=== PATIENT | male | born 1960 | race Caucasian/White ===

== ENCOUNTER 2022-07-23 19:51 | Inpatient (IN) | payer BC ==
[~2022-07-23] VITALS: Ht 182.9 cm; Wt 108.9 kg
[2022-07-23] MEDS ORDERED: IV NS 0.9% 1,000 ML BAG IV ONE (20:00)
--- NOTE | 2022-07-23 20:30 | NUR ---
BLOOD COLLECTED AND SENT TO LAB
--- NOTE | 2022-07-23 20:35 | NUR ---
PT TAKEN TO CT VIA SILVA
--- NOTE | 2022-07-23 20:45 | NUR ---
PT RETURNED TO ER BED [address]
[2022-07-23 20:50] LABS: BASOPHILS % (AUTO) 0.3 % (0.0-2.0); EOSINOPHILS % (AUTO) 0.9 % (0.0-6.0); HEMATOCRIT 47 % (39-51); HEMOGLOBIN 16.1 g/dL (13.5-17.5); LYMPHOCYTES # (AUTO) 2.2 K/uL (0.8-4.8); LYMPHOCYTES % (AUTO) 20.8 % (20.0-44.0); MEAN CORPUSCULAR HGB CONC 35 g/dl (31.0-36.0); MEAN CORPUSCULAR VOLUME 85 fL (80-96); MONOCYTES # (AUTO) 0.8 K/uL (0.1-1.30); MONOCYTES % (AUTO) 7.8 % (2.0-12.0); NEUTROPHILS # (AUTO) 7.4 K/uL (1.8-8.9); NEUTROPHILS % (AUTO) 70.2 % (43.0-81.0); PLATELET COUNT (AUTO) 514 K/uL (150-450); WHITE BLOOD COUNT (AUTO) 10.5 K/uL (4.3-11.0)
[2022-07-23 21:01] LABS: CALCIUM, SERUM 8.9 mg/dL (8.5-10.1); CARBON DIOXIDE 21 mmol/L (21-32); CHLORIDE 101 mmol/L (98-107); CREATININE 1.3 mg/dL (0.6-1.3); GLUCOSE 136 mg/dL (74-106); POTASSIUM 3.5 mmol/L (3.5-5.1); SODIUM SERUM 134 mmol/L (136-145); UREA NITROGEN, BLOOD 17 mg/dL (7-18)
[2022-07-23 21:07] LABS: ALANINE AMINOTRANSFERASE 36 U/L (12-78); ALBUMIN 3.5 g/dL (3.4-5.0); ALCOHOL, BLOOD < 3 mg/dL (0-0); ALKALINE PHOSPHATASE 54 U/L (46-116); ASPARTATE AMINOTRANSFERASE 28 U/L (15-37); BILIRUBIN,DIRECT 0.1 mg/dL (0.0-0.2); BILIRUBIN,TOTAL 0.6 mg/dL (0.2-1.0); TOTAL PROTEIN, SERUM 7.6 g/dL (6.4-8.2)
--- NOTE | 2022-07-23 21:22 | NUR ---
SPOKE TO SUSAN AT PT'S FACILITY. SHE GAVE NUMBERS FOR UPDATES ON PT [phone] AND [phone]
--- NOTE | 2022-07-23 21:22 | NUR ---
covid swab sent
[2022-07-23] MEDS ORDERED: ACETAMINOPHEN 325 MG TABLET ONE (21:24)
[2022-07-23] MEDS ORDERED: IV NS 0.9% 1,000 ML IV ONE (21:30)
[2022-07-23] MEDS ORDERED: ACETAMINOPHEN 325 MG TABLET PO ONE (21:30)
--- NOTE | 2022-07-23 21:39 | NUR ---
MOVE SHEET SUBMITTED
--- NOTE | 2022-07-23 22:05 | NUR ---
WILLIAM GOODRICH DNP AT PT'S BEDSIDE FOR ALICEAL
[2022-07-23] MEDS ORDERED: MORPHINE SULFATE INJ 2 MG/ML DISP.SYRIN IV PRN (22:30)
[2022-07-23] MEDS ORDERED: TEMAZEPAM 15 MG CAPSULE PO PRN (22:30)
[2022-07-23] MEDS ORDERED: ONDANSETRON HCL/PF 4 MG/2 ML VIAL IVP PRN (22:30)
[2022-07-23] MEDS ORDERED: MAG HYDROX/AL HYDROX/SIMETH 30 ML UDC PO PRN (22:30)
[2022-07-23] MEDS ORDERED: Z GUARD REMEDY 4 OZ OINT TP PRN (22:30)
[2022-07-23] MEDS ORDERED: MAGNESIUM HYDROXIDE 30 ML UDC PO PRN (22:30)
[2022-07-23] MEDS ORDERED: ACETAMINOPHEN 325 MG TABLET PO PRN (22:30)
[2022-07-23] MEDS ORDERED: LORAZEPAM INJ 2 MG/ML VIAL IV PRN (22:30)
--- NOTE | 2022-07-23 22:49 | NUR ---
ROOM 117-2
--- NOTE | 2022-07-23 23:10 | NUR ---
MRSA SWAB COLLECTED AND SENT TO LAB
--- NOTE | 2022-07-23 23:10 | NUR ---
REPORT GIVEN TO RADHA MORENO
--- NOTE | 2022-07-23 23:20 | NUR ---
PT TRANSFERRING TO [facility] VIA ACLS PROTOCOL. VSS. ALL BELONGINGS WITH PT.
[2022-07-23] MEDS ORDERED: LEVETIRACETAM (500MG) 500 MG/5 ML VIAL IV ONE (23:50)
[2022-07-23] MEDS: LEVETIRACETAM (500MG) 1,000 MG in IV NS 0.9% 100 ML IV SCH (23:54)
[2022-07-23] MEDS: IV NS 0.9% 1,000 ML IV PRN (23:54)
[2022-07-24] MEDS: HYDROCODONE/APAP 5/325MG TABLET PO PRN (00:02)
[2022-07-24 01:00] VITALS: BP 160/65
[2022-07-24] MEDS ORDERED: LOFE0.18 PO (01:00)
[2022-07-24] MEDS ORDERED: HYDR50CA PO (01:00)
[2022-07-24] MEDS ORDERED: QUET100T PO (01:00)
[2022-07-24] MEDS ORDERED: CLON0.1T PO (01:00)
[2022-07-24] MEDS ORDERED: METH-649 PO (01:00)
--- NOTE | 2022-07-24 01:10 | NUR ---
RN NOTE PT A/O X3-4 ABLE TO MAKE NEEDS KNOWN. ON 2L NASAL CANULA FOR COMFORT. PT NOTED WELL IV ACCES ON THE R UPPPER ARM #20G RUNNING NS @75ML/HR AND KEPPRA IV PIGGYBACK TOLERATING WELL. PT VERY UNSTEADY GAIT AT THIS TIME. PT WAS GIVEN PRN NORCO 5- 325MG PT REPORTING GENERALIZED BODY PAIN 8/10 PER PT THE DOES NOT WISH TO TAKE ANY STRONG NARCOTICS " ITS NOT GOOD FOR ME I AM TRYING TO STOP TAKING DRUGS" SAFETY MEASURES FOLLOWED. HOB ELEVATED FOR ASPIRATION PRECAUTIONS, BED LOCKED IN POSITION. SEIZURE PRECAUTIONS MAINTAINED. ALL NEEDS MET AT THIS TIME.
--- NOTE | 2022-07-24 03:12 | NUR ---
RN NOTE PRN ATIVAN GIVEN FOR WITHDRAWAL SYMPTOMS TOLERATED WELL. OK TO GIVE PER BEREAVEMENT PROGRAM COORDINATOR JOLEEN.
[2022-07-24 05:21] VITALS: BP 149/74
[2022-07-24 06:41] LABS: BASOPHILS % (AUTO) 0.1 % (0.0-2.0); EOSINOPHILS % (AUTO) 0.2 % (0.0-6.0); HEMATOCRIT 44 % (39-51); HEMOGLOBIN 15.2 g/dL (13.5-17.5); LYMPHOCYTES # (AUTO) 1.9 K/uL (0.8-4.8); LYMPHOCYTES % (AUTO) 15.6 % (20.0-44.0); MEAN CORPUSCULAR HGB CONC 35 g/dl (31.0-36.0); MEAN CORPUSCULAR VOLUME 85 fL (80-96); MONOCYTES # (AUTO) 0.9 K/uL (0.1-1.30); MONOCYTES % (AUTO) 7.6 % (2.0-12.0); NEUTROPHILS # (AUTO) 9.1 K/uL (1.8-8.9); NEUTROPHILS % (AUTO) 76.5 % (43.0-81.0); PLATELET COUNT (AUTO) 399 K/uL (150-450); RED BLOOD CELL COUNT(AUTO) 5.14 MIL/uL (4.5-6.0); WHITE BLOOD COUNT (AUTO) 11.9 K/uL (4.3-11.0)
--- NOTE | 2022-07-24 06:52 | NUR ---
RN NOTE PT A/O X3-4 ABLE TO MAKE NEEDS KNOWN. ON 2L NASAL CANULA FOR COMFORT. PT NOTED WELL IV ACCES ON THE R UPPER ARM #20G RUNNING NS @75ML/HR PT VERY UNSTEADY GAIT AT THIS TIME. SAFETY MEASURES FOLLOWED. HOB ELEVATED FOR ASPIRATION PRECAUTIONS, BED LOCKED IN POSITION. SEIZURE PRECAUTIONS MAINTAINED. ALL NEEDS MET AT THIS TIME.WILL ENDORSE CARE TODAY SHIFT NURSE.
[2022-07-24 07:22] LABS: CALCIUM, SERUM 8.4 mg/dL (8.5-10.1); CREATININE 0.9 mg/dL (0.6-1.3); MAGNESIUM 2.2 mg/dL (1.8-2.4); PHOSPHORUS 4.1 mg/dL (2.5-4.9); POTASSIUM 3.9 mmol/L (3.5-5.1)
[2022-07-24 08:00] VITALS: BP 148/86
[2022-07-24] MEDS: PANTOPRAZOLE 40 MG TABLET.DR PO SCH (08:09)
--- NOTE | 2022-07-24 09:31 | NUR ---
WOUND CARE CONSULT: LIMITED ASSESSMENT DUE TO PT VERY WEAK AND REFUSING TO TURN FOR FULL ASSESSMENT. PT STATES HAS SORENESS ALL OVER HIS BODY AND STATES IS HAVING TROUBLE SWALLOWING. RN AND TOURIST GUIDE NOTIFIED. DISCUSSED SKIN PROTECTION WITH NURSING STAFF. MD IN AGREEMENT WITH PLAN OF CARE.
[2022-07-24] MEDS: LEVETIRACETAM (500MG) 1,000 MG in IV NS 0.9% 100 ML IV SCH ×2 (09:52→21:28)
[2022-07-24 12:00] VITALS: BP 133/75
--- NOTE | 2022-07-24 13:36 | NUR ---
SW Consult: SW consult requested for patient for substance abuse. Patient brought to the hospital due to seizures. Patient presents alert and oriented x3 (self,place,situation). Patient reported that when he was brought to the hospital he was unsure what had happened and was not able to recall the incident. Patient appeared confused and disorganized, but was able to recall some events. Patient reported that he is originally from [place]. He states that he is . He reported his 's name is Steph but unable to remember the phone number and has children- 5 boys. 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 Patient stated that he is currently residing at a [facility] located at [id number] [place] [address]; ([phone]). Patient denies suicidal or homicidal ideation. Patient denies visual/auditory hallucinations. Patient denied any mental illness. Patient stated he is feeling anxious because he wants to be discharged back to his Sober Living. Patient stated that he is currently feeling weak and has difficulty sleeping. SW conducted substance abuse intervention with pt. He stated that he came to [place] in July for Detox. He reported that for the past two years he has been abusing drugs- specifically using Xanax and Heroin. SW offered pt resources and pt was accepting of shelters and substance abuse referrals. DC PLAN: Patient stated that he is currently residing at a [facility] located at [id number] [place] [address]; ([phone]). Patient wants to return back to his Sober Living Home. Substance Abuse resources provided included: [facility] Substance Abuse Self-Helpline ([facility]) ; [facility] [id number] [facility]. [place] [id number] ; [facility] [address] [facility] [address] ; [facility] [address] [facility] [address] ; [facility] [address] [address] ; [facility] [address] [facility] [address] ; [facility] [address] [facility] [id number] ; [facility] Substance Abuse Helpline([facility] ; [facility] ; [facility] [place]; [facility] [place]; [facility] Son[facility] Romano; [facility]; [facility]; [facility]; [facility], [facility]. Palomo Franco; Alcoholics Anonymous [facility]; [place] ; Marijuana Anonymous [facility]; Narcotics Anonymous www.na.org;
[2022-07-24 16:00] VITALS: BP 147/89
--- NOTE | 2022-07-24 16:00 | NUR ---
RN NOTES: SEEN BY DR VIRGEN WITH ORDER OF ROBAXIN PRN FOR PAIN
[2022-07-24] MEDS: METHOCARBAMOL (750MG) 750 MG TABLET PO PRN ×2 (16:01→21:28)
[2022-07-24] MEDS: IV NS 0.9% 1,000 ML IV PRN (18:20)
--- NOTE | 2022-07-24 19:20 | NUR ---
GROUND SYSTEMS ENGINEER CLOSING NOTES: PT A/O X3-4 ABLE TO MAKE NEEDS KNOWN. ON 2L NASAL CANULA FOR COMFORT. PT NOTED WELL IV ACCES ON THE L UPPER ARM MIDLINE #18G RUNNING NS @75ML/HR PT VERY UNSTEADY GAIT AT THIS TIME. SAFETY MEASURES FOLLOWED. HOB ELEVATED FOR ASPIRATION PRECAUTIONS, BED LOCKED IN POSITION. SEIZURE PRECAUTIONS MAINTAINED. ALL NEEDS MET AT THIS TIME.WILL ENDORSE CARE TO EVENT SERVICES MANAGER NURSE.
[2022-07-24 20:00] VITALS: BP 153/87
[2022-07-25 00:24] VITALS: BP 145/85
[2022-07-25] MEDS: HYDROCODONE/APAP 5/325MG TABLET PO PRN (00:40)
[2022-07-25 05:35] VITALS: BP 132/71
[2022-07-25 06:43] LABS: BASOPHILS % (AUTO) 0.2 % (0.0-2.0); EOSINOPHILS % (AUTO) 0.4 % (0.0-6.0); HEMATOCRIT 46 % (39-51); HEMOGLOBIN 15.6 g/dL (13.5-17.5); LYMPHOCYTES # (AUTO) 1.7 K/uL (0.8-4.8); LYMPHOCYTES % (AUTO) 16.4 % (20.0-44.0); MEAN CORPUSCULAR HGB CONC 34 g/dl (31.0-36.0); MEAN CORPUSCULAR VOLUME 87 fL (80-96); MONOCYTES # (AUTO) 0.7 K/uL (0.1-1.30); MONOCYTES % (AUTO) 7.2 % (2.0-12.0); NEUTROPHILS # (AUTO) 7.9 K/uL (1.8-8.9); NEUTROPHILS % (AUTO) 75.8 % (43.0-81.0); PLATELET COUNT (AUTO) 381 K/uL (150-450); RED BLOOD CELL COUNT(AUTO) 5.33 MIL/uL (4.5-6.0); WHITE BLOOD COUNT (AUTO) 10.4 K/uL (4.3-11.0)
[2022-07-25] MEDS: PANTOPRAZOLE 40 MG TABLET.DR PO SCH (06:45)
[2022-07-25 07:24] LABS: CALCIUM, SERUM 8.4 mg/dL (8.5-10.1); CREATININE 0.9 mg/dL (0.6-1.3); MAGNESIUM 2.4 mg/dL (1.8-2.4); PHOSPHORUS 2.9 mg/dL (2.5-4.9); POTASSIUM 3.7 mmol/L (3.5-5.1)
--- NOTE | 2022-07-25 07:37 | NUR ---
RN notes Received patient in bed without any active complaint. Telemetry showed SR 63/min. No SOB noted. Left upperarm midline is dry and intact with NS running at 75mL/hr. Suction bottle is present. Call deluna is placed within reach. Bed is locked and placed in the lowest position. All safety measures have been implemented. Will continue monitoring and care.
[2022-07-25 08:00] VITALS: BP 154/99
[2022-07-25] MEDS ORDERED: LEVETIRACETAM SOL (5 ML) 100 MG/ML UDC PO SCH (09:00)
[2022-07-25] MEDS: IV NS 0.9% 1,000 ML IV PRN (09:09)
[2022-07-25 12:00] VITALS: BP 144/76
--- NOTE | 2022-07-25 13:00 | NUR ---
RN notes Patient's called and inquired about patient's condition. Brief situation has been informed.
[2022-07-25] MEDS ORDERED: AZIT1PAC PO (15:05)
[2022-07-25] MEDS ORDERED: LEVE500T9 PO (15:05)
--- NOTE | 2022-07-25 15:45 | NUR ---
RN notes Patient is for discharge. Liased with [facility] about the transportation. Left upper arm midline and right upper arm IV sites are removed. Telemetry box has also been removed. Patient is discharged, transported to [facility] by wheelchair with the accompany of MADDY Diamond.
[2022-07-25 16:00] VITALS: BP 150/73
[2022-07-25] MEDS ORDERED: LEVETIRACETAM (250 MG) 250 MG TABLET PO SCH (21:00)
== END 2022-07-25 16:35 | DRG 100 ==
LOC: ER 19:52 → TELE1 22:56
PROVIDERS: ADMIT Nurse Practitioner Acute Care; ATTEND Nurse Practitioner Acute Care
PROC: 05HA33Z Insertion of Infusion Device into Left Brachial Vein, Percutaneous Approach (ICD-10-PCS; principal; 2022-07-24)
DX: G40.509 Epileptic seizures related to external causes, not intractable, without status epilepticus (principal); J15.9 Unspecified bacterial pneumonia; F19.139 Other psychoactive substance abuse with withdrawal, unspecified; N40.0 Benign prostatic hyperplasia without lower urinary tract symptoms; Z20.822 Contact with and (suspected) exposure to COVID-19; Z90.49 Acquired absence of other specified parts of digestive tract; Z98.890 Other specified postprocedural states; Z68.38 Body mass index [BMI] 38.0-38.9, adult; T42.4X5A Adverse effect of benzodiazepines, initial encounter; Y92.099 Unspecified place in other non-institutional residence as the place of occurrence of the external cause; E66.9 Obesity, unspecified; Z91.010 Allergy to peanuts; T40.605A Adverse effect of unspecified narcotics, initial encounter
CPT/HCPCS: 36410; 36415; 70450-TC; 71045-TC; 80048-TC; 80076-TC; 82962-TC; 83735-TC; 84100-TC; 85025-TC; 87081-TC; 92526; 92611-TC; 95819-TC; C9803; G0378; G0480; J1953; J2060; J2405; J7030